=== PATIENT | male | born 1950 | race Caucasian/White ===

== ENCOUNTER 2023-04-03 06:24 | Day surgery (SDC) | payer MEDICARE, OTHER, SELFPAY ==
[2023-04-03 08:05] VITALS: BMI 27.9
[2023-04-03 08:28] VITALS: BMI 27.9
[2023-04-03 08:36] VITALS: BP 162/77
[2023-04-03 09:25] VITALS: BP 155/84
[2023-04-03 09:30] VITALS: BP 152/71
[2023-04-03 09:45] VITALS: BP 166/81
[2023-04-03 09:53] VITALS: BP 183/75
== END 2023-04-03 10:00 | disposition home or self-care (01) ==
LOC: GI 06:24
PROVIDERS: ATTENDING PHYSICIAN Internal Medicine Gastroenterology
DX: I85.00 Esophageal varices without bleeding (principal); K76.6 Portal hypertension; K31.89 Other diseases of stomach and duodenum
CPT/HCPCS: 43235

== ENCOUNTER → 2023-10-08 14:04 | Outpatient (REF) | payer MEDICARE, OTHER, SELFPAY | LOC: HWRAD 14:04 | PROVIDERS: ATTENDING PHYSICIAN Physician Assistant; FAMILY PHYSICIAN Family Medicine; REFERRING PHYSICIAN Internal Medicine Gastroenterology | DX: K74.60 Unspecified cirrhosis of liver (principal); F17.210 Nicotine dependence, cigarettes, uncomplicated | CPT/HCPCS: 71271; 76700 ==

== ENCOUNTER → 2024-06-10 09:46 | Outpatient (REF) | payer MEDICARE, OTHER, SELFPAY | LOC: HWRAD 09:46 | PROVIDERS: ATTENDING PHYSICIAN Nurse Practitioner; FAMILY PHYSICIAN Family Medicine | DX: K74.60 Unspecified cirrhosis of liver (principal) | CPT/HCPCS: 76700 ==

== ENCOUNTER 2024-08-07 11:15 | Outpatient (RCR) | payer MEDICARE, OTHER, SELFPAY ==
[2024-07-31] MEDS: INJECTAFER 265 MG IV (11:44)
[2024-07-31 11:47] VITALS: BP 112/70
[2024-07-31 12:54] VITALS: BP 129/72
[2024-08-07 11:25] VITALS: BP 138/66
[2024-08-07] MEDS: INJECTAFER 265 MG IV (11:36)
[2024-08-07 12:49] VITALS: BP 109/55
== END 2024-08-10 09:01 | disposition home or self-care (01) ==
LOC: OID 11:15
PROVIDERS: ATTENDING PHYSICIAN Family Medicine
DX: D50.9 Iron deficiency anemia, unspecified (principal); F17.200 Nicotine dependence, unspecified, uncomplicated; K74.60 Unspecified cirrhosis of liver; F10.10 Alcohol abuse, uncomplicated
CPT/HCPCS: 96365; J1439

== ENCOUNTER → 2024-10-21 11:23 | Outpatient (REF) | payer MEDICARE, OTHER, SELFPAY | LOC: HWRAD 11:23 | PROVIDERS: ATTENDING PHYSICIAN Internal Medicine Gastroenterology; FAMILY PHYSICIAN Family Medicine | DX: K70.30 Alcoholic cirrhosis of liver without ascites (principal); R07.89 Other chest pain | CPT/HCPCS: 71046; 76700 ==

== ENCOUNTER 2024-12-20 23:39 | Inpatient (IN) | payer MEDICARE, OTHER, SELFPAY ==
[2024-12-20] VITALS (7 sets, daily range): BP systolic 117–140; BP diastolic 67–90; BMI 30.1
[2024-12-20 15:17] LABS: Hematocrit 31.6 % (39.0-52.0); Hemoglobin 10.1 g/dL (13.0-18.0); Mean Corp Hgb Conc. 32.0 g/dL (33.0-37.0); Mean Corpuscular Volume 86.3 fL (80.0-94.0); Nucleated Red Blood Cells % 0 % (-); Platelet Count 77 10^3/uL (130-400); Red Cell Dist. Width 17.2 % (11.5-14.5)
[2024-12-20 15:40] LABS: Ammonia < 9 umol/L (9-30)
[2024-12-20 15:42] LABS: AST (SGOT) 43 U/L (17-59); Albumin 3.2 g/dl (3.5-5.0); Alkaline Phosphatase 86 U/L (38-126); Blood Urea Nitrogen 13 mg/dl (9-20); Calcium 8.3 mg/dl (8.4-10.2); Carbon Dioxide 21 mmol/L (22-30); Chloride 105 mmol/L (98-107); Estimated Creatinine Clearance 88 ml/min; Glucose 223 mg/dl (70-99); Lipase 91 U/L (23-300); Potassium 3.1 mmol/L (3.5-5.1); Sodium 133 mmol/L (135-145); Total Protein 6.9 g/dl (6.3-8.2); eGFR > 60.00
[2024-12-20 15:51] LABS: ALT (SGPT) 23 U/L (0-50)
[2024-12-20 15:52] LABS: Troponin I < 0.012 ng/ml
--- NOTE | 2024-12-20 17:46 | ED.GENMED ---
History of Present Illness
<Leatha Huang, FRET SAW OPERATOR - Last Filed: 12/20/24 23:13>
General
Chief Complaint: Breathing Problem
Source: patient
Exam Limitations: none
Time Seen by Provider: 12/20/24 17:45
Nursing documentation reviewed up to this point in time: agreed with
History of Present Illness
History of Present Illness:
74-year-old male with history of HTN, HLD, cirrhosis of liver, GERD, GI bleed, alcohol abuse and withdrawal, esophageal varices, iron deficiency anemia, pancytopenia, cholecystectomy presents for abdominal swelling worsening over the past week
He has also felt short of breath at times, even at rest. Abdomen 'hurts off and on, not a bad pain...aching then sometimes stabbing.' Mild discomfort presently.
He states he has been lightheaded off and on, dyspneic on exertion and pains across his chest over the past month. He saw his PCP for this and was sent to cardiology for evaluation. [facility], told him he felt palpitations and chest pain and he states he had a normal EKG.
Past History
<Leatha Huang, FRET SAW OPERATOR - Last Filed: 12/20/24 23:13>
Past History
ED Past Medical History: HTN, Hypercholesterolemia and Other
ED Past Surgical History: None
Patient has exhibited threatening behavior?: No
PSI?: No
Review of Systems
<Leatha Huang, FRET SAW OPERATOR - Last Filed: 12/20/24 23:13>
Review of Systems
Allergies reviewed?: Yes
All Other Systems: ROS reviewed and negative except as documented in HPI and ROS
Phy Exam
<Leatha Huang, FRET SAW OPERATOR - Last Filed: 12/20/24 23:13>
Physical Exam
Physical Exam:
GENERAL: No acute distress. A&Ox3.
CONSTITUTIONAL: Afebrile.
EYES: clear, conjunctivae normal
ENMT: moist mucus membranes, Pharynx nl
RESPIRATORY: Regular respirations, nonlabored, lungs clear.
CARDIOVASCULAR: Regular rate and rhythm, no murmurs, no rubs.
GI: Soft, distended, mildly tender generally, normal BS
MUSCULOSKELETAL: Moves with ease. Well perfused.
SKIN: Warm, dry, pink
PSYCH: Normal mood and affect. Well kept, interactive and appropriate
NEUROLOGIC: Awake, alert and oriented. No focal neurological deficits
Scores
<Leatha Huang, FRET SAW OPERATOR - Last Filed: 12/20/24 23:13>
Heart Failure Risk
Heart Failure Risk Score: Not Applicable
Course
<Leatha Huang, FRET SAW OPERATOR - Last Filed: 12/20/24 23:13>
Orders/Labs/Results
Orders:
Orders
12/20/24 15:00
Electrocardiogram (*1) Urgent
Reason for Study: Shortness of Breath
12/20/24 15:01
EKG- Treatment ONCE
12/20/24 15:06
Ammonia Urgent
Complete Blood Count/With Diff Urgent
Comprehensive Metabolic Panel Urgent
Lipase Urgent
Troponin I Urgent
12/20/24 16:45
CR Chest - 2 Views Urgent
Comment:
Reason For Exam: shortness of breath
12/20/24 18:07
US Abdomen Limited Urgent
Comment:
Reason For Exam: ascites assessment
12/20/24 19:02
Potassium Chloride [KCl] 40 meq PO NOW STA
12/20/24 20:12
CT Abd/Pel (IV only)-DH only Urgent
Comment:
Reason For Exam: Abdominal pain, distention
12/20/24 22:59
Add On- LAB Stat
Tests Added?: pro-BNP
Abnormal Lab Results
12/20/24
15:06
RBC 3.66 L 10^6/uL
(4.70-6.10)
Hgb 10.1 L g/dL
(13.0-18.0)
Hct 31.6 L %
(39.0-52.0)
MCHC 32.0 L g/dL
(33.0-37.0)
RDW 17.2 H %
(11.5-14.5)
Plt Count 77 L 10^3/uL
(130-400)
MPV 10.7 H fL
(7.4-10.4)
Absolute Lymphs (auto) 0.9 L 10^3/uL
(1.2-3.4)
Absolute Monos (auto) 0.8 H 10^3/uL
(0.1-0.6)
Lymphocytes % 15.9 L %
(20.5-51.1)
Monocytes % 14.0 H %
(1.7-9.3)
Sodium 133 L mmol/L
(135-145)
Potassium 3.1 L mmol/L
(3.5-5.1)
Carbon Dioxide 21 L mmol/L
(22-30)
Glucose 223 H mg/dl
(70-99)
Calcium 8.3 L mg/dl
(8.4-10.2)
Total Bilirubin 4.2 H mg/dl
(0.2-1.3)
Ammonia < 9 L umol/L
(9-30)
Albumin 3.2 L g/dl
(3.5-5.0)
12/20/24 15:06
12/20/24 15:06
Vital Signs
Initial and Last Documented VS:
Initial Vital Signs
Temp Pulse Resp BP Pulse Ox
97.6 F 100 28 131/80 100
12/20/24 15:06 12/20/24 15:06 12/20/24 15:06 12/20/24 15:06 12/20/24 15:06
Last Documented Vital Signs
Temp Pulse Resp BP Pulse Ox
97.6 F 93 21 140/90 96
12/20/24 15:06 12/20/24 22:13 12/20/24 22:13 12/20/24 22:13 12/20/24 19:45
<Crystal Kathy, DO - Last Filed: 12/20/24 22:55>
Orders/Labs/Results
Orders:
Orders
12/20/24 15:00
Electrocardiogram (*1) Urgent
Reason for Study: Shortness of Breath
12/20/24 15:01
EKG- Treatment ONCE
12/20/24 15:06
Ammonia Urgent
Complete Blood Count/With Diff Urgent
Comprehensive Metabolic Panel Urgent
Lipase Urgent
Troponin I Urgent
12/20/24 16:45
CR Chest - 2 Views Urgent
Comment:
Reason For Exam: shortness of breath
12/20/24 18:07
US Abdomen Limited Urgent
Comment:
Reason For Exam: ascites assessment
12/20/24 19:02
Potassium Chloride [KCl] 40 meq PO NOW STA
12/20/24 20:12
CT Abd/Pel (IV only)-DH only Urgent
Comment:
Reason For Exam: Abdominal pain, distention
12/20/24 22:59
Add On- LAB Stat
Tests Added?: pro-BNP
Abnormal Lab Results
12/20/24
15:06
RBC 3.66 L 10^6/uL
(4.70-6.10)
Hgb 10.1 L g/dL
(13.0-18.0)
Hct 31.6 L %
(39.0-52.0)
MCHC 32.0 L g/dL
(33.0-37.0)
RDW 17.2 H %
(11.5-14.5)
Plt Count 77 L 10^3/uL
(130-400)
MPV 10.7 H fL
(7.4-10.4)
Absolute Lymphs (auto) 0.9 L 10^3/uL
(1.2-3.4)
Absolute Monos (auto) 0.8 H 10^3/uL
(0.1-0.6)
Lymphocytes % 15.9 L %
(20.5-51.1)
Monocytes % 14.0 H %
(1.7-9.3)
Sodium 133 L mmol/L
(135-145)
Potassium 3.1 L mmol/L
(3.5-5.1)
Carbon Dioxide 21 L mmol/L
(22-30)
Glucose 223 H mg/dl
(70-99)
Calcium 8.3 L mg/dl
(8.4-10.2)
Total Bilirubin 4.2 H mg/dl
(0.2-1.3)
Ammonia < 9 L umol/L
(9-30)
Albumin 3.2 L g/dl
(3.5-5.0)
12/20/24 15:06
12/20/24 15:06
Vital Signs
Initial and Last Documented VS:
Initial Vital Signs
Temp Pulse Resp BP Pulse Ox
97.6 F 100 28 131/80 100
12/20/24 15:06 12/20/24 15:06 12/20/24 15:06 12/20/24 15:06 12/20/24 15:06
Last Documented Vital Signs
Temp Pulse Resp BP Pulse Ox
97.6 F 93 21 140/90 96
12/20/24 15:06 12/20/24 22:13 12/20/24 22:13 12/20/24 22:13 12/20/24 19:45
<Leatha MelanieEm Huang FRET SAW OPERATOR - Last Filed: 12/20/24 23:13>
MDM/Problems Addressed
Differential Diagnosis Includes:
ascites,
MDM/Problems Addressed:
74-year-old male with history of HTN, HLD, cirrhosis of liver, GERD, GI bleed, alcohol abuse and withdrawal, esophageal varices, iron deficiency anemia, pancytopenia, cholecystectomy presents for abdominal swelling worsening over the past week
He has also felt short of breath at times, even at rest. Abdomen 'hurts off and on, not a bad pain...aching then sometimes stabbing.' Mild discomfort presently.
Patient states he drinks 4 or 5 beers every day, smokes half a pack of cigarettes a day
He states he has been lightheaded off and on, dyspneic on exertion and pains across his chest over the past month. He saw his PCP for this and was sent to cardiology for evaluation. He went to a various exceptionalities teacher Dr. Scales near [facility] 2 days
ago, told him he felt palpitations and chest pain and he states he had a normal EKG.
7:40 PM:
Abdominal ultrasound radiology report read: FINDINGS and IMPRESSION:
Ultrasound evaluation of the 4 quadrants of the abdomen reveals overall small to moderate volume ascites, most prominent in the right lower quadrant.
Chest x-ray radiology report read: IMPRESSION:
Diminished degree of inspiration. Minor atelectasis. Otherwise, no acute cardiopulmonary process appreciated.
Patient moaning and groaning and when I asked what was wrong he said he has not had this much trouble breathing before. His pulse ox is 99% on room air and I reassured him.
Chest x-ray pending
After telling him that there was not enough fluid to drain in his belly, he now asks why am I having all this abdominal pain? Will proceed to CT abdomen pelvis with IV contrast.
10:10 PM: CT abdomen pelvis with IV only contrast radiology report read: IMPRESSION:Cirrhosis. Splenomegaly. Paraesophageal varices.
Mild to moderate ascites. Mild mesenteric edema.
No bowel obstruction. No obstructive uropathy.
10:[address] Chavez consulted and in.
Agrees with admission, new moderate ascites, [place], volume overload
Hospitalist notified of admission
<Leatha Huang FRET SAW OPERATOR - Last Filed: 12/20/24 23:13>
*Pulse Oximetry
SaO2: 97
Oxygen Mode of Delivery: Room air
Patient hypoxic: no
*Critical Care Note
Total Time (30-74mins, 75-104mins- exclusive of procedures): Not Applicable
ED Attending Note
<Leatha Huang, FRET SAW OPERATOR - Last Filed: 12/20/24 23:13>
-
Portions of this chart may have been created with voice recognition software.� Occasional wrong word or��sound alike� substitutions may have occurred due to the inherent limitations of voice recognition software.
<Crystal Chavez DO - Last Filed: 12/20/24 22:55>
ED Attending Note
Patient seen and examined by attending physician: Yes
I performed the substantive portion of visit, reviewed & personally made and approve the management plan that is documented in note by myself or ANDIE.: Yes
I performed a history and physical exam of patient and discussed management with resident, I reviewed resident's note and agree with documented findings and plan of care.: Yes
ED Attending Note:
74-year-old male with history of alcoholic cirrhosis, esophageal varices, iron deficiency anemia, hypertension, hyperlipidemia presenting to the emergency department for multiple complaints. Patient reports that he has been feeling short of breath
for over a week. Notes dyspnea on exertion and dyspnea with any type of minimal exertion. Notes that he did see his various exceptionalities teacher 2 days ago, reports that he had a normal EKG at that time. More recently he started to develop abdominal swelling
distention with generalized pain. Some nausea with episode of vomiting. Denies any fever. Denies any history of ascites.
Vital signs on arrival are normal. On exam, patient is in no acute respiratory distress benign cardiac and pulmonary exam. On abdominal exam, moderate distention with no focal tenderness. Patient seen and evaluated by nurse practitioner prior to
my assessment. We reviewed, nonischemic. Chest x-ray obtained, no significant signs of volume overload. CT of the abdomen pelvis obtained, which shows moderate ascites. Suspected etiology of patient's pain, discomfort, dyspnea on exertion.
Again patient denying any known history of ascites, never had paracentesis in the past. Without present concern for SBP. No leukocytosis, afebrile, no localized tenderness. However, given new onset and patient's pain, feel patient warrants
admission for therapy paracentesis and possible cardiac versus GI consultation.
Discharge Plan
Departure
Patient Disposition: Admit
Date of Disposition: 12/20/24
Time of Disposition: 22:39
Admit to: Med/Surg
Presentation/result/management discussed w/ accepting MD/DO: Hospitalist
Condition: Fair
Discharge Problem:
Abdominal ascites, Dyspnea on exertion, Volume overload
Prescriptions:
No Action
Blink Tears 0.25 % Drops
1 drp ophthalmic (eye) DAILY MDD Instill in both eyes PRN (Reason: dry eyes)
carvedilol 6.25 mg Tablet
6.25 mg PO BID Qty: 60 0RF
thiamine HCl (vitamin B1) 100 mg Tablet
100 mg PO DAILY Qty: 30 0RF
omeprazole 40 MG capsule,delayed release(DR/EC)
40 mg PO DAILY Qty: 30 0RF
Referrals:
Christian Michelle MD [Family Provider, Family Practice]
Interventions
Interventions:
*Risk Screen - Suicide Last Done: 12/20/24 15:11
*General Assessment Last Done: 12/20/24 15:11
*Neglect/Abuse Screening Last Done: 12/20/24 15:11
*ED COVID-19 Vaccine History Last Done: 12/20/24 15:10
*ED Influenza Vaccine History Last Done: 12/20/24 15:10
ED- Cardiac Assessment Last Done: 12/20/24 17:00
ED- Pulmonary Assessment Last Done: 12/20/24 17:00
Discharge Date and Time
Print Language: MACEDONIAN
[2024-12-20] MEDS: KCL 40 MEQ PO (19:06)
--- NOTE | 2024-12-20 22:50 | W.PN.UPDATE ---
Update Note
Progress Note Update
Patient seen in conjunction with nurse practitioner. I agree with the findings on history and physical. I concur with assessment and plan unless stated otherwise.
Briefly, this is a 74-year-old with past medical history significant for alcoholic cirrhosis complicated by esophageal varices status post banding few years ago, GERD, history of iron deficiency anemia pancytopenia likely secondary to portal
hypertension will rule out presents to the emergency department with increasing abdominal girth and some shortness of breath. Patient still a daily drinker 4-5 cans of beer daily. Last drink was yesterday. Denies N/V. Denies any melena. Denies
hematochezia.
In the emergency department the patient was afebrile, blood pressure of 140/90 with a pulse rate of 93 and was satting 96% on room air. His chest x-ray shows no acute pulmonary edema or pleural effusions or infiltrates. ECG with rate of 100 and
few PACs.
Labs notable for white count 5.4 hemoglobin 10.3 on repeat count of 77. Electrolytes with a sodium of 133 with potassium of 3.1 and otherwise unremarkable. BUN and creatinine were normal. Leukos was 223. Total bilirubin was 4.2 with LFTs being
in the normal range.
Imaging again with a CT of the abdomen pelvis showing moderate ascites, no focal collection or abscess. No adenopathy. Cirrhosis noted with splenomegaly and paraesophageal varices. Ultrasound of the 4 quadrants of the abdomen revealed overall
small to moderate volume ascites. Patient is status post cholecystectomy.
Assessment and plan
73-year-old with past medical history significant for alcohol dependence and cirrhosis complicated by esophageal varices status post banding who presents with abdominal Girth increases and shortness of breath. Weight gain. Found to have new onset
ascites, moderate. Abdomen nontender and no tenseness. Unlikely SBP. Hemoglobin is stable no evidence of acute bleed at this time. He does have paraesophageal varices on the CT scan. No prior history of CHF. Renal function is normal. No
peripheral edema. No pulm edema and no jvd elevation.
Volume overload -volume overload is likely secondary to new onset ascites in the setting of progressive cirrhosis. Ongoing alcohol use. No obvious evidence of acute decompensation with normal LFTs although the bilirubin is slightly for elevated.
No TTP. Unlikely SBP but cannot rule out entirely. No history of CHF.
Cirrhosis with new onset ascites - Likely portal htn, eval chf as patient does have pacs & mild chest discomfort
- Will admit to telemetry for now
- Supplement potassium, supplement magnesium
- Start diuretics with Lasix 20 mg po daily
- Start spironolactone 25 mg p.o. daily
- Diagnostic paracentesis
- GI consulted
- Continue carvedilol for varices BP control
- continue ppi
- Currently no prior history of hepatic encephalopathy, ammonia level undetectable, no indication for acute prophylaxis at this time, and GI will be following
- Will evaluate other sources of for volume overload, check BNP, echo in a.m.
ETOH use/dependence- last drink yesterday. No signs of acute withdrawal
- MSAS protocol for now
- continue MVI
Hyponatremia - mild likely due to cirrhosis, excess free water intake from etoh
- replete K
- hyervolemic, start gentle diuresis as above
Atypical CP - ECG with pacs, trop negative. No prior hx of CAD. Pain reproducible with palpation. H/o gastritis/gerd
- telemetry for nw
- echo
- analgesics
- continue ppi bid
Anemia - stable, no evidence of GI bleed
Thrombocytopenia - Stable. likely secondary to portal hypertension, cirrhosis
DVT PPX- SCDs for now
Code status - Full code
--- NOTE | 2024-12-20 22:53 | HPS.HSE ---
Family Physician
-
Family Physician: Christian Michelle
Chief Complaint
-
Abdominal pain, swelling
History of Present Illness
74-year-old male complaining of abdominal swelling over the past 5 days along with shortness of breath at rest. He also reports being lightheaded on and off with dyspnea on exertion and chest pain over the past month. He was seen by PCP and sent
to cardiology for evaluation he was reportedly seen at a psychiatric social worker supervisor near [facility] 2 days ago had normal EKG despite complaining of palpitations. He reports still drinking 4-5 beers daily however cut down over the past 5 days 1 beer a day
last drink was yesterday afternoon. He denies history of ascites. He complains of shortness of breath, abdominal pain, nausea, vomiting bile, reflux. He denies fever, chills, cough, diarrhea, black stools, hematemesis he states he has had normal
bowel movement
He has past medical history HTN, HLD iron deficiency anemia, chronic pancytopenia, chronic thrombocytopenia fatty liver, alcoholic cirrhosis of liver, alcohol abuse/withdrawal, GERD,
EGD 04/03/2023 grade 1 esophageal varices, history of esophageal banding 01/24/2023, portal hypertensive gastropathy, hemorrhoids, diverticulosis, nonbleeding angioectasias:
Medical History
Past Medical History
Past Medical History: Reports Other
Additional Past Medical History:
HTN
HLD
iron deficiency anemia
chronic pancytopenia
chronic Thrombocytopenia
fatty liver
Alcoholic cirrhosis of liver
Alcohol abuse/withdrawal
GERD
EGD 04/03/2023 grade 1 esophageal varices, history of esophageal banding 01/24/2023
portal hypertensive gastropathy
nonbleeding angioectasias in colon
hemorrhoids
diverticulosis
Active smoker
Past Surgical History: Reports Other
Additional Past Surgical History:
Cholecystectomy
Social History
Tobacco: Smoker (Half a pack a day times)
Alcohol: Daily (4-5 beers)
Drug: None
Personal: Single
Living: Alone
Employment: Retired
Family History
Family History: Other (Mother CVA Father unknown)
Allergies / Home Medications
Allergies reflects when Allergies were last updated in [employer].
Home Medications with original date entered in [employer]
Allergy/Medication List:
Allergies
Allergy/AdvReac Type Severity Reaction Status Date / Time
Penicillins Allergy hot Verified 12/20/24 15:02
flashes;sweats;shakes
shrimp Allergy Tongue Verified 12/20/24 15:02
Swelling
Home Medications
carvedilol 6.25 mg tablet 6.25 mg PO BID #60 tabs 01/25/23
omeprazole 40 mg capsule,delayed release 40 mg PO DAILY Gastrointestinal issue #30 caps 01/25/23
M.V.I. 1 tab PO DAILY 12/20/24
iron 65 mg PO DAILY 12/20/24
Review of Systems
-
History Source: Patient
A 12 point ROS was completed and negative except as noted: Yes
Constitutional: Reports Fatigue; Denies Fever or Chills
EENT: Denies Sore Throat or Runny Nose
Respiratory: Reports Trouble Breathing; Denies Cough
Cardiac: Denies Chest Pain, Diaphoresis, Palpitations or Syncope
Abdomen/GI: Reports Abdominal Pain (due to distention ascites), Nausea and Vomiting (occ bile ); Denies Diarrhea, Constipated, Bloody Stools or Black Stools
: Denies Dysuria, Frequency, Flank Pain, Incontinence, Difficulty Voiding or Urgency
Musculoskeletal: Denies Joint Pain or Edema
Skin: Denies Itching or Rash
Neurological: Denies Dizzy, Headache or Weakness
Hematologic/Lymphatic: Reports No Symptoms
Psych: Reports Calm
Physical Exam
Vital Signs
Vital Signs
Temp Pulse Resp BP Pulse Ox
97.6 F 93 21 140/90 96
12/20/24 15:06 12/20/24 22:13 12/20/24 22:13 12/20/24 22:13 12/20/24 19:45
Physical Exam
General: Conversant and Pain; No Fever or Chills
HEENT: NormoCephalic, Anicteric, Moist mucous membranes, PERRLA, [place] Conjunctivae and No Ptosis
Respiratory: Clear; No Wheezes, Rales or Rhonchi
Cardiac: S1/S2, Regular Rhythm (occ pac's ) and Murmur (2/6 systolic ); No Rub, Gallop or Peripheral Edema
Breast: Deferred by me
GI: Non Tender (RLQ), Distended and Other (soft ventral hernia nontender)
Rectal: Deferred by Provider
Genito-urinary: Deferred by me
Musculoskeletal: No Clubbing, No Cyanosis and No Edema
Skin: Warm and Dry; No Rash or Jaundice
Neuro: AO x 3, No Motor Deficits, Nonfocal/grossly intact, Cranial Nerves Intact and No Sensory Deficits; No Slurred Speech, Facial Droop, Tremors or Sedated
Psych: Calm
Laboratory Results
-
12/20/24 15:06
12/20/24 15:06
Laboratory Results
Total Bilirubin 4.2 mg/dl (0.2-1.3) H 12/20/24 15:06
AST 43 U/L (17-59) 12/20/24 15:06
ALT 23 U/L (0-50) 12/20/24 15:06
Alkaline Phosphatase 86 U/L (38-126) 12/20/24 15:06
Troponin I < 0.012 ng/ml 12/20/24 15:06
Lipase 91 U/L (23-300) 12/20/24 15:06
Data Reviewed
-
Diagnostic Radiology: Report Reviewed by me
Ultrasound: Report Reviewed by me
Lab Data: Labs Reviewed by me
Impression/Plan
-
Impression/plan:
Admit to Tele
#Abdominal pain secondary to mild/Moderate Ascites with mild mesenteric edema
History of Alcoholic liver Cirrhosis
Ammonia normal
- Consult IR for paracentesis with cytology
-Consult GI
Will start Lasix 20 mg, spironolactone 25 mg daily
-Monitor I&O, daily weights
- Check BNP
CT abdomen pelvis: Cirrhosis, splenomegaly, paraesophageal varices, mild to moderate ascites with mild mesenteric edema, no bowel obstruction no obstructive uropathy
Abdominal ultrasound small to moderate volume ascites most prominent in the right lower quadrant
CXR: Diminished degree of inspiration minor atelectasis otherwise normal
#Alcohol abuse
Alcoholic liver cirrhosis
Patient still drinking 4-5 beers daily last beer yesterday, prior 2022 was drinking hard liquor and multiple beers daily
- Cessation was advised
-MSAS screening protocol
- IV thiamine IV folate
#Cardiac murmur
-Check 2D echo
#Acute hypokalemia due to volume overload
K3.1
- 40 KCl given in ER, will give additional 20 KCl now
Follow BMP in a.m.
#Hyperglycemia
Blood sugar 223 will check HgbA1c
#Esophageal varices/GERD/portal hypertensive gastropathy
#History of nonbleeding angioectasias in colon
EGD 04/03/2023 grade 1 esophageal varices, history of esophageal banding 01/24/2023
Hemoglobin stable 10.1
-Continue PPI
#Chronic anemia�normocytic
History iron deficiency anemia
Hgb 10.1
#Chronic thrombocytopenia/Splenomegaly
Plt 77 prior baseline 40�70 ([id number])
HTN
�benign
Continue carvedilol 6.25 mg twice daily
DVT prophylaxis
Splenomegaly
Full code
[2024-12-21] VITALS (10 sets, daily range): BP systolic 78–151; BP diastolic 52–109; PULSE 71; BMI 29.2
--- NOTE | 2024-12-21 01:59 | PTCARENOTE ---
Pt arrived to unit (0125 12/21/24) cooperatively, ambulated self from stretcher to bed. Pt was AOOx3, oriented to unit, bed locked, bed in lowest position, call kidd in reach. Sinus arrythmia per tele on admission.
[2024-12-21] MEDS: THIAMINE INJECTION 200 MG IV ×3 (02:44→15:43)
[2024-12-21] MEDS: KCL 20 MEQ PO (04:32)
[2024-12-21 06:29] LABS: Urine Character Clear (Clear)
[2024-12-21 06:41] LABS: Hematocrit 27.7 % (39.0-52.0); Hemoglobin 9.0 g/dL (13.0-18.0); Mean Corp Hgb Conc. 32.5 g/dL (33.0-37.0); Mean Corpuscular Volume 85.8 fL (80.0-94.0); Nucleated Red Blood Cells % 0 % (-); Platelet Count 58 10^3/uL (130-400); Red Cell Dist. Width 17.2 % (11.5-14.5)
[2024-12-21 06:43] LABS: GGTP 113 U/L (15-73)
[2024-12-21 06:47] LABS: INR 1.42; PT 17.6 Sec (11.4-14.6)
[2024-12-21 06:53] LABS: ALT (SGPT) 15 U/L (0-50); AST (SGOT) 36 U/L (17-59); Albumin 2.9 g/dl (3.5-5.0); Alkaline Phosphatase 89 U/L (38-126); Blood Urea Nitrogen 13 mg/dl (9-20); Calcium 8.2 mg/dl (8.4-10.2); Carbon Dioxide 25 mmol/L (22-30); Chloride 108 mmol/L (98-107); Estimated Creatinine Clearance 88 ml/min; Glucose 112 mg/dl (70-99); HDL Cholesterol 29 mg/dl; LDL Cholesterol, Calculated 47 mg/dl; Magnesium 1.4 mg/dl (1.6-2.3); Potassium 4.0 mmol/L (3.5-5.1); Sodium 133 mmol/L (135-145); Total Protein 6.4 g/dl (6.3-8.2); Very Low Density Lipoprotein 16 mg/dl (0-30); eGFR > 60.00
[2024-12-21 07:02] LABS: Urine Red Blood Cell 26-30 /HPF (0-2)
[2024-12-21] MEDS: FOLVITE 1 MG PO (08:39)
[2024-12-21] MEDS: LASIX 20 MG PO (08:39)
[2024-12-21] MEDS: COREG 6.25 MG PO (08:39)
[2024-12-21] MEDS: PROTONIX 40 MG PO (08:39)
[2024-12-21] MEDS: ALDACTONE 25 MG PO (08:39)
[2024-12-21 08:57] LABS: Glycohemoglobin (HgbA1c) 4.1 % (4.0-5.9)
--- NOTE | 2024-12-21 09:47 | CON.GI ---
Addendum entered and electronically signed by Lloyd Felipe MD 12/21/24 12:24:
I saw and examined the patient.
The EMS INSTRUCTOR or PA's note was reviewed and I agree with the note.
Comment: 74yo male presents with increased abdominal distention with pain, SOB, fatigue. He has hx EtOH cirrhosis, drinks 4-5 beers/day, esophageal varices s/p banding in 2022 and f/u EGD in 2023 showing grade I varices. No prior paracentesis. US
shows moderate ascites. CT shows cirrhosis, splenomegaly, esoph varices, mild/mod ascites, mild mesenteric edema
REC:
New onset ascites
s/p paracentesis- WBC 300 with 25% PMN (negative SBP). Fluid alb <1 and serum albumin 2.9 calculating to SAAG >1.8 c/w portal HTN
Started on low dose diuretics
Feeling better and ok for d/c from GI standpoint
Check BMP in 2 weeks
F/U with Dr Toribio in office for further management of EtOH cirrhosis
Reinforced need for EtOH abstinence
Addendum entered and electronically signed by RADHA Neal 12/21/24 12:10:
Patient has hospital follow-up appoint with Dr. Toribio on 01/18/2025 at 11:30 AM
Original Note:
Consultation
-
Date/Time Consultation Requested: 12/20/24 3283
Date/Time Consultation Performed: 12/21/24 6360
Requesting Provider: RADHA Evangelista
Performing Provider: Dr. Felipe/RADHA Valdez
Reason for Consultation: ascites, ETOH abuse
Medical History
Chief Complaint / HPI
Chief Complaint: abnormal labs
History of Present Illness:
74 yo with hx of iron deficiency anemia (on IV iron), GERD, fatty liver, alcoholic cirrhosis decompensated with esophageal varices, on Coreg 6.25(last endoscopy 04/03/23 Dr. Toribio that showed grade 1 esophageal varices. Portal hypertensive
gastropathy. Normal duodenum) maintained on carvedilol 6.25 mg twice daily, colonic AVMs, nonobstructive CAD, hypertension, continues to drink. Patient is unable to have MRI secondary to 'metal in ears' who presents to the ER with increasing
abdominal swelling and shortness of breath. Asked to evaluate for ascites. The patient has recently seen cardiology for shortness of breath and chest discomfort. The patient was seen by Dr. Toribio for his routine follow up in September and was
asked to f/u with Cardiology, had US that showed small amount of ascites and CXR that was clear. Patient states that he started having significant abdominal distention. No lower extremity edema. He denies any fevers, chills, nausea, vomiting,
melena, hematochezia, dysphagia or dyne aphasia. No early satiety or unintended weight loss. He does not follow 2 g sodium diet. We discussed at length. He was still drinking 5-6 beers daily. He did stop about 1 week ago.
�� � � � � � � � � �
Past Medical History
Past Medical History: GERD, HTN, Hypercholesterolemia and Other (ETOH abuse, Iron deficiency anemia, fatty liver, choledocholithiasis with prior ERCP, GERD, esophageal varices, portal hypertensive gastropathy, colonic AVMs, CAD, hypertension)
Past Surgical History: Cholecystectomy and Other (left ear surgery)
Social History
Tobacco: Smoker
Alcohol: Daily
Drug: None
Living: Alone
Family History
Family History: Other (sister with metastatic CA)
Allergies / Home Medications
Allergy/AdvReac Type Severity Reaction Status Date / Time
Penicillins Allergy hot Verified 12/20/24 15:02
flashes;sweats;shakes
shrimp Allergy Tongue Verified 12/20/24 15:02
Swelling
�Medication �Instructions �Recorded
carvedilol 6.25 mg tablet 6.25 mg PO BID #60 tabs 01/25/23
omeprazole 40 mg capsule,delayed 40 mg PO DAILY Gastrointestinal 01/25/23
release issue #30 caps
M.V.I. 1 tab PO DAILY Supplement 12/20/24
iron 65 mg PO DAILY Supplement 12/20/24
Review of Systems
-
All other systems: A 12 pt ROS was Negative except as stated above in HPI
Vital Signs
Temp Pulse Resp BP Pulse Ox
98 F 78 15 111/73 98
12/21/24 08:50 12/21/24 09:42 12/21/24 09:42 12/21/24 09:42 12/21/24 09:40
Physical Exam
Exam
General: No Apparent Distress
HEENT: Anicteric
Respiratory: Clear
Cardiac: Regular Rhythm
GI: Soft, Non Tender, Non Distended and Normal Bowel Sounds
Musculoskeletal: No Edema
Neuro: AO x 3
Psych: Calm
Results
WBC 3.9 10^3/uL (4.8-10.8) L 12/21/24 06:08
Hgb 9.0 g/dL (13.0-18.0) L 12/21/24 06:08
Hct 27.7 % (39.0-52.0) L 12/21/24 06:08
MCV 85.8 fL (80.0-94.0) 12/21/24 06:08
Plt Count 58 10^3/uL (130-400) L D 12/21/24 06:08
Absolute Neuts (auto) 2.2 10^3/uL (1.4-6.5) 12/21/24 06:08
PT 17.6 Sec (11.4-14.6) H 12/21/24 06:07
INR 1.42 12/21/24 06:07
Sodium 133 mmol/L (135-145) L 12/21/24 06:08
Potassium 4.0 mmol/L (3.5-5.1) D 12/21/24 06:08
Chloride 108 mmol/L (98-107) H 12/21/24 06:08
Carbon Dioxide 25 mmol/L (22-30) 12/21/24 06:08
BUN 13 mg/dl (9-20) 12/21/24 06:08
Creatinine 0.8 mg/dL (0.7-1.3) 12/21/24 06:08
Calcium 8.2 mg/dl (8.4-10.2) L 12/21/24 06:08
Total Bilirubin 3.3 mg/dl (0.2-1.3) H 12/21/24 06:08
AST 36 U/L (17-59) 12/21/24 06:08
ALT 15 U/L (0-50) 12/21/24 06:08
Alkaline Phosphatase 89 U/L (38-126) 12/21/24 06:08
Lipase 91 U/L (23-300) 12/20/24 15:06
Diagnostic Image Results:
Paracentesis: Report pending (per patient 4.1 L removed)
Ultrasound abdomen 12/20/2024:Ultrasound evaluation of the 4 quadrants of the abdomen reveals overall small to moderate volume ascites, most prominent in the right lower quadrant.
CT abdomen and pelvis with IV contrast only 12/20/2024:Cirrhosis. Splenomegaly. Paraesophageal varices.
Mild to moderate ascites. Mild mesenteric edema.No bowel obstruction. No obstructive uropathy.
Chest x-ray 12/20/2024:Diminished degree of inspiration. Minor atelectasis. Otherwise, no acute cardiopulmonary process appreciated.
Prior GI Procedures:
---04/03/2023 EGD (Catarino) grade 1 esophageal varices. Portal hypertensive gastropathy. Normal examined duodenum.
---01/24/23 Colonoscopy, Dr. Yanes: internal hemorrhoids, diverticulosis, a few non-bleeding angiodysplastic lesions (APC not performed). Repeat 3-5 years
---01/24/23 EGD, Dr. Yanes: Grade III esophageal varices, banded, with complete eradication. Portal hypertensive gastropathy, normal duodenum. Repeat in 4 weeks.
---07/2021 FibroScan: F3 fibrosis
---07/2020 EGD, Dr. Hidalgo: normal esophagus, duodenum. Gastritis. Bx mild chronic inactive gastritis, neg H pylori.
Labs 10/17/24:
AFP 2.8, WBC 3.8, hemoglobin 10.2, hematocrit 33.5, platelets 69, Iron 38, TIBC 361, percent iron saturation 11, ferritin 16, sodium 141, potassium 4.2, BUN 11, creatinine 0.68, total bilirubin 1.3, direct bilirubin 0.4, AST 34, ALT 15, alk phos
101, albumin 3.3
10/21/2024 ultrasound abdomen: Cirrhosis. No hepatic mass. Small amount of intraperitoneal ascites new. Splenomegaly.
10/21/2024 chest x-ray: Clear lungs. No significant change.
Assessment / Plan
-
74 yo with hx of iron deficiency anemia (on IV iron), GERD, fatty liver, alcoholic cirrhosis decompensated with esophageal varices, on Coreg 6.25(last endoscopy 04/03/23 that showed grade 1 esophageal varices. Portal hypertensive gastropathy. Normal
duodenum) maintained on carvedilol 6.25 mg twice daily, colonic AVMs, nonobstructive CAD, hypertension, recently quit smoking however continues to drink. Patient is unable to have MRI secondary to 'metal in ears' who presents to the ER with
increasing abdominal swelling and shortness of breath. Asked to evaluate for ascites. Patient with moderate amount of ascites seen on imaging. Symptomatic. No lower extremity edema. BNP negative. Denies any fevers, chills, nausea, vomiting,
melena, hematochezia, dysphagia or dyne aphasia. No early satiety or unintended weight loss. The patient does not weigh himself. We discussed this at length. Last alcohol was approximately 5 days ago. Was drinking 5-6 beers a day prior. WBC
3.9, hemoglobin 9.0, hematocrit 27.7, platelets 58, INR 1.42, sodium 133, potassium 4.0, BUN 13, creatinine 0.8, total bilirubin 3.3, AST 36, ALT 15, alk phos 89. Patient went for paracentesis this morning. Report not available however patient
states he had 4.1 L removed. He is feeling markedly improved. Fluid analysis SAG greater than 1.8 fluid negative for SBP. Culture and Gram stain pending. Patient was started on Lasix 20 mg daily and Aldactone 25 mg daily. Discussed with patient
role of diuretics. Also discussed with patient 2 g sodium diet and educated him on such. Discussed about daily weights. Need for routine labs, follow-up and alcohol abstinence
Impression:
Decompensated cirrhosis, (varices and ascites)
Ascites, moderate
Esophageal varices, last EGD 04/03/2023 (grade 1)
Iron deficiency anemia, on outpatient IV iron infusion
--> Likely secondary to portal gastropathy and colonic and SB AVMs in setting of thrombocytopenia
Thrombocytopenia
ETOH abuse
Plan:
-Patient is s/p paracentesis, await fluid culture and gram stain
-SAAG is > 1.8, Fluid neg SBP.
-Started on Lasix 20 mg po and Aldactone 25 mg daily
-ETOH cessation advised
-Continue Coreg 6.25 BID
-Daily weights, call if greater than 3 lbs in 1 day or 5 lbs in 1 week
-2 gm Na diet
-Continue Omeprazole 40 mg daily
-Continue iron
-Would get outpatient labs in 2 weeks, per IM/f/u with PCP
-Will obtain hospital follow up with Dr. Toribio for patient
-Okay per GI for discharge. Discussed with Dr. Shaikh
-
-
Thank you for consultation and allowing me to participate in the patient's care. Please call the corporate bond trader GI physician during the after hours with any questions or concerns.
--- NOTE | 2024-12-21 11:29 | CM ---
trauma manager reviewed patient's chart and met with patient and patient lives alone is independent with adl's and ambulation, no dme, patient drives, home when stable no needs. trauma manager received a consult for substance abuse counseling, case
project construction assistant manager discussed with patient possible referral to [facility] however patient declined referral to [facility].
PCP: Dr. Michelle
Pharmacy: [facility] in [place].
[2024-12-21 11:49] LABS: Body Fluid Second Tech HB
--- NOTE | 2024-12-21 12:07 | W.PN.HOSP.TC ---
Today's Communication/Plan
-
If ok from GI will plan on DC today
Assessment / Plan
Assessment / Plan
#Abdominal distention and pain secondary to mild/Moderate Ascites with mild mesenteric edema
History of Alcoholic liver Cirrhosis
Ammonia normal
Status post paracentesis which shows total white count of 300. Culture pending. SAAG 1.8 suggestive of portal hypertension.
cw Lasix 20 mg, spironolactone [address] abdomen pelvis: Cirrhosis, splenomegaly, paraesophageal varices, mild to moderate ascites with mild mesenteric edema, no bowel obstruction no obstructive uropathy
Abdominal ultrasound small to moderate volume ascites most prominent in the right lower quadrant
CXR: Diminished degree of inspiration minor atelectasis otherwise normal
#Alcohol abuse
Alcoholic liver cirrhosis
Patient still drinking 4-5 beers daily last beer yesterday, prior 2022 was drinking hard liquor and multiple beers daily
- Cessation was advised
-MSAS screening protocol
-No signs of alcohol withdrawal.
Patient states he never had any alcohol withdrawal syndrome. He has done days without alcohol without any symptoms.
Patient declines any open support for alcohol rehab program. He says he has done quitting alcohol by himself And He Will Try to Do It Again.
#Cardiac murmur
-2D echo valvular heart disease. Ascending aorta mildly dilated at 4.0 cm which is increased from 3.6 in the last 3 years. Advised to follow-up with cardiology as an outpatient to keep an eye on it.
#Acute hypokalemia due to volume overload
K3.1
- 40 KCl given in ER, will give additional 20 KCl now
.
#Hyponatremia-mild follow for now.
#Hypomagnesemia-replete IV
#Hyperglycemia
Blood sugar 223
Hemoglobin A1c 4.1
#Esophageal varices/GERD/portal hypertensive gastropathy
#History of nonbleeding angioectasias in colon
EGD 04/03/2023 grade 1 esophageal varices, history of esophageal banding 01/24/2023
Hemoglobin stable 10.1
-Continue PPI
- Continue with Coreg
#Chronic anemia�normocytic
History iron deficiency anemia
Hgb 9.0 today. Check iron stores.
#Chronic thrombocytopenia/Splenomegaly
prior baseline 40�70 ([id number])
HTN
�benign
Continue carvedilol 6.25 mg twice daily
DVT prophylaxis
Discussed with GI
Total time spent on today's encounter was 52 minutes which included time spent in counseling the patient/family regarding diagnosis and treatment plan as listed above, goals of care, and symptom management. Case was discussed with nursing staff,
specialists, and care coordinators/case management. All labs and imaging personally reviewed by me. Remainder the time spent in detailed review of previous records, lab data, imaging, and other medical provider documentation.
Full code
Anticipated Discharge: Today
Subjective/Interval History
-
Date of Service: December 21, 2024
Improved abdominal discomfort after paracentesis. Denies any shortness of breath at rest. No chest pain. No fever or chills. No diarrhea. No nausea vomiting. Tolerating diet.
Objective Data
-
Labs:
Laboratory Results
12/21/24 12/21/24
06:07 06:08
WBC 3.9 L
Hgb 9.0 L
Hct 27.7 L
Plt Count 58 L D
PT 17.6 H
INR 1.42
Sodium 133 L
Potassium 4.0 D
Chloride 108 H
Carbon Dioxide 25
BUN 13
Creatinine 0.8
Glucose 112 H
Calcium 8.2 L
Total Bilirubin 3.3 H
AST 36
ALT 15
Alkaline Phosphatase 89
Vital Signs:
Vital Signs
Temp Pulse Resp BP Pulse Ox
98 F 78 15 111/73 98
12/21/24 08:50 12/21/24 09:42 12/21/24 09:42 12/21/24 09:42 12/21/24 09:40
Physical Exam
-
General: No Apparent Distress
Respiratory: Clear to Auscultation and Non Labored Respirations; Negative Wheezes, Crackles or Accessory Resp Muscle Use
Cardiac: Regular Rhythm and S1/S2; Negative Tachycardic
GI: Soft, Nontender, Normal Bowel Sounds and Distended (mild)
Musculoskeletal: No Edema
Neuro: AO x 3 and No Motor Deficits; Negative Tremors
Psych: Calm; Negative Confused or Agitated
Data Reviewed
-
Labs: Labs Reviewed by me
[2024-12-21] MEDS: MAGNESIUM SULFATE 50 IV (13:14)
--- NOTE | 2024-12-21 15:44 | W.DCSUMMARY ---
Discharge Summary
Discharge Data
Date of Admission: 12/20/24
Date of Discharge: 12/21/24
-
Pending Results: Yes (Ascitic fluid cytology and final blood cultures)
Hospital Course
Primary diagnosis:
New ascites secondary to portal hypertension
Secondary diagnosis:
Known cirrhosis probably seconsary to alcholism
Alcohol use disorder
Pancytopenia
Hospital course:
74-year-old gentleman with known prior history of alcohol cirrhosis presented with increasing abdominal discomfort and distention and shortness of breath. He had new ascites. He had paracentesis and had 4150 cc drained. Fluid test did not show
any evidence of SBP. SAAG gradient was 1.[address] of the abdomen pelvis showed moderate ascites, no focal collection or abscess, no adenopathy. Unfortunately patient is still using daily alcohol and advised wrongly
to quit it. Alcohol rehab programmer developer was offered to the patient but he wanted to do it himself. He has done it in the past apparently. He was started on Lasix and spironolactone. Repeat BMP was recommended in 2 weeks time. He will follow
with GI as an outpatient. Fluid cytology was pending at the time of discharge.
He has pancytopenia with a white count of 3.9 and hemoglobin of 9 and platelets of 58K which is known to him in the past. Suspect secondary to cirrhosis.His Cr 0.8. Bili was 3.3 with GGT of 113. AST ALT alkaline phosphatase normal at this current
time. Patient was seen by GI during the stay here.
Consultants on board:
[facility]
Discharge Plan
-
Patient Disposition: Home (Routine Discharge)
Discharge Diagnosis/Procedures: New ascites -no SBP;sec to portal hypertension. History of alcoholic cirrhosis
Diet: 2 Gram Sodium
Activity: As tolerated
Driving Restrictions: As prior to admission
Blood Work: BMP in 2 week -arrange through your PCP
Specialty Instructions: Weigh Daily- Call MD for wt gain/loss 3 lbs overnight/5 lbs in 1 week
Referrals:
Christian Michelle MD [Family Provider, Family Practice] - in less than 1 week
Rahul Toribio MD [Active, Gastroenterology] - 01/18/25 11:30 am
Prescriptions:
New
spironolactone 25 mg Tablet
25 mg PO DAILY Qty: 30 0RF
folic acid 1 mg Tablet
1 mg PO DAILY Qty: 30 0RF
furosemide 20 mg Tablet
20 mg PO DAILY Qty: 30 0RF
thiamine mononitrate (vit B1) 100 mg Tablet
100 mg PO BID Qty: 60 0RF
Continued
carvedilol 6.25 mg Tablet
6.25 mg PO BID Qty: 60 0RF
omeprazole 40 MG capsule,delayed release(DR/EC)
40 mg PO DAILY Qty: 30 0RF
M.V.I.
1 tab PO DAILY
iron
65 mg PO DAILY
Discharge Orders:
Discharge Patient (As Directed); Ordered 12/21/24
Ordered By: Jarocho Shaikh
Discharge Date and Time
Print Language: MAORI
== END 2024-12-21 18:20 | disposition home or self-care (01) | DRG 433 ==
LOC: 4 WEST ACU 23:39
PROVIDERS: Clinical Nurse Specialist Family Health; Radiology Vascular & Interventional Radiology; ADMITTING PHYSICIAN Internal Medicine; ATTENDING PHYSICIAN Internal Medicine; CONSULT PHYSICIAN Specialist; EMERGENCY PHYSICIAN Student in an Organized Health Care Education/Training Program; FAMILY PHYSICIAN Family Medicine
PROC: 0W9G3ZZ Drainage of Peritoneal Cavity, Percutaneous Approach (ICD-10-PCS; 2024-12-21)
DX: K70.31 Alcoholic cirrhosis of liver with ascites (principal); D61.818 Other pancytopenia; I85.10 Secondary esophageal varices without bleeding; E87.1 Hypo-osmolality and hyponatremia; K76.6 Portal hypertension; F17.210 Nicotine dependence, cigarettes, uncomplicated; E87.6 Hypokalemia; I50.9 Heart failure, unspecified; R16.1 Splenomegaly, not elsewhere classified; I11.0 Hypertensive heart disease with heart failure; F10.10 Alcohol abuse, uncomplicated; D50.9 Iron deficiency anemia, unspecified; Z79.899 Other long term (current) drug therapy
CPT/HCPCS: 49083; 71046; 74177; 76705; 80053; 80061; 80306; 81003; 81015; 82010; 82042; 82077; 82140; 82150; 82977; 83036; 83615; 83690; 83735; 83880; 84157; 84484; 85025; 85610; 87015; 87070; 87205; 88112; 88305; 89051; 93005; 93306; 97162; 99285; 99406; Q9967

== ENCOUNTER 2025-02-22 13:24 | Emergency (ER) | payer MEDICARE, OTHER, SELFPAY ==
[2025-02-22] VITALS (9 sets, daily range): BP systolic 17–161; BP diastolic 67–140; BMI 29.7
[2025-02-22 13:51] LABS: Hematocrit 29.8 % (39.0-52.0); Hemoglobin 9.4 g/dL (13.0-18.0); Mean Corp Hgb Conc. 31.5 g/dL (33.0-37.0); Mean Corpuscular Volume 80.8 fL (80.0-94.0); Nucleated Red Blood Cells % 0 % (-); Red Cell Dist. Width 18.0 % (11.5-14.5)
[2025-02-22 13:59] LABS: ALT (SGPT) 16 U/L (0-50); AST (SGOT) 37 U/L (17-59); Albumin 3.2 g/dl (3.5-5.0); Alkaline Phosphatase 83 U/L (38-126); Blood Urea Nitrogen 14 mg/dl (9-20); Calcium 8.5 mg/dl (8.4-10.2); Carbon Dioxide 19 mmol/L (22-30); Chloride 110 mmol/L (98-107); Glucose 121 mg/dl (70-99); Lipase 85 U/L (23-300); Potassium 4.4 mmol/L (3.5-5.1); Sodium 135 mmol/L (135-145); Total Protein 7.1 g/dl (6.3-8.2); eGFR > 60.00
[2025-02-22 14:20] LABS: Platelet Count 84 10^3/uL (130-400)
--- NOTE | 2025-02-22 15:59 | ED.GENMED ---
History of Present Illness
<Frank Sawyer DO, Resident - Last Filed: 02/23/25 00:45>
General
Chief Complaint: Abdominal Symptoms
Source: patient
Exam Limitations: none
Time Seen by Provider: 02/22/25 15:32
Nursing documentation reviewed up to this point in time: agreed with
History of Present Illness
History of Present Illness:
Valentino Stoddard is a 74M with PMHx alcoholic cirrhosis and EtOH disorder who is presenting with 2 weeks of increasing abdominal distension in the setting of medication non-compliance and alcohol use. Patient states that he stopped taking his
medications two days and had been using alcohol up until 1 week ago. 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 Patient was discharged home. He states that he supposed to be on Lasix 20 mg daily, spironolactone 25 mg daily, however, that he has been somewhat medically noncompliant. He endorses associated signs of
abdominal pain and leaking of fluid from the umbilicus as well as nausea. Patient endorses 1 episode of vomiting 2 days ago. He denies fevers at home. States that he is occasionally short of breath secondary to abdominal distention. Also
endorses that his mouth is dry. Otherwise, no jaundice, icterus, urinary changes, lower extremity edema.
Past History
<Frank Sawyer DO, Resident - Last Filed: 02/23/25 00:45>
Past History
ED Past Medical History: HTN, Hypercholesterolemia and Other
ED Past Surgical History: None
Patient has exhibited threatening behavior?: No
PSI?: No
Review of Systems
<Frank Sawyer DO, Resident - Last Filed: 02/23/25 00:45>
Review of Systems
Allergies reviewed?: Yes
All Other Systems: ROS reviewed and negative except as documented in HPI and ROS
Phy Exam
<Frank Sawyer DO, Resident - Last Filed: 02/23/25 00:45>
Physical Exam
Physical Exam:
General: pleasantly conversant male in no acute distress, nontoxic appearing
HEENT: Normocephalic, atraumatic, sclera anicteric
Cardio: Regular rate and rhythm, no murmurs, rubs, gallops. HR on monitor occasionally up to 103�104.
Respiratory: No wheezing, rales, rhonchi. Mildly decreased breath sounds in the bilateral bases.
Abdomen: Moderately distended. Otherwise soft, not rigid, no guarding, rebound. Nontender to palpation in all 4 quadrants. Positive fluid wave.
MSK: No clubbing, cyanosis, edema. Mild healing excoriations to the bilateral shins.
Neuro: Awake, alert, oriented. Nontremulous.
Psych: Calm, normal affect.
Course
<Frank Sawyer DO, Resident - Last Filed: 02/23/25 00:45>
Orders/Labs/Results
Orders:
Orders
02/22/25 13:35
Complete Blood Count/With Diff Urgent
Comprehensive Metabolic Panel Urgent
Lipase Urgent
02/22/25 15:54
Consult Interventional Radiology [IRAD CONSULT] Routine
Consulting Provider: Lewis Chou
Was physician already notified: Yes
Procedure being ordered, including laterality if applicable: Paracentesis
Acknowledgement that appropriate orders are entered: Yes
02/22/25 17:03
Body Fluid Albumin Urgent
Fluid Source: Peritoneal (Ascites)
Date Specimen was Collected: 02/22/25
Time Specimen was Collected: 17:02
Body Fluid LDH Urgent
Fluid Source: Peritoneal (Ascites)
Date Specimen was Collected: 02/22/25
Time Specimen was Collected: 17:02
Fluid Culture with Gram Stain Urgent
DEMETRIO Source: Peritoneal Fluid
Specimen Description:
Date Specimen was Collected: 02/22/25
Time Specimen was Collected: 17:02
02/22/25 17:05
Body Fluid Cell Count Routine
What is the Body Fluid: Ascitic Fluid
Date Specimen was Collected: 02/22/25
Time Specimen was Collected: 17:02
02/22/25 18:01
Albumin Human 25% 100 ml [Flexbumin] 25 grams in 100 ml IV TODAY
Albumin Human 25% 50 ml [Flexbumin] 12.5 grams in 50 ml IV TODAY
02/22/25 18:30
Albumin Human 25% 100 ml [Flexbumin] 25 grams in 100 ml IV TODAY
Albumin Human 25% 50 ml [Flexbumin] 12.5 grams in 50 ml IV TODAY
02/22/25 20:11
Albumin Human 25% 50 ml [Flexbumin] 12.5 grams in 50 ml IV TODAY
Abnormal Lab Results
02/22/25
13:35
RBC 3.69 L 10^6/uL
(4.70-6.10)
Hgb 9.4 L g/dL
(13.0-18.0)
Hct 29.8 L %
(39.0-52.0)
MCH 25.5 L pg
(27.0-31.0)
MCHC 31.5 L g/dL
(33.0-37.0)
RDW 18.0 H %
(11.5-14.5)
Plt Count 84 L 10^3/uL
(130-400)
MPV 11.0 H fL
(7.4-10.4)
Absolute Lymphs (auto) 1.0 L 10^3/uL
(1.2-3.4)
Lymphocytes % 20.0 L %
(20.5-51.1)
Monocytes % 11.3 H %
(1.7-9.3)
Chloride 110 H mmol/L
(98-107)
Carbon Dioxide 19 L mmol/L
(22-30)
Glucose 121 H mg/dl
(70-99)
Total Bilirubin 3.2 H mg/dl
(0.2-1.3)
Albumin 3.2 L g/dl
(3.5-5.0)
02/22/25 13:35
02/22/25 13:35
Vital Signs
Initial and Last Documented VS:
Initial Vital Signs
Temp Pulse Resp BP Pulse Ox
97.9 F 103 22 121/84 99
02/22/25 13:27 02/22/25 13:27 02/22/25 13:27 02/22/25 13:27 02/22/25 13:27
Last Documented Vital Signs
Temp Pulse Resp BP Pulse Ox
98 F 90 22 127/77 100
02/22/25 16:10 02/22/25 20:00 02/22/25 20:00 02/22/25 20:00 02/22/25 20:00
<Brennan Valenzuela DO - Last Filed: 02/22/25 18:04>
Orders/Labs/Results
Orders:
Orders
02/22/25 13:35
Complete Blood Count/With Diff Urgent
Comprehensive Metabolic Panel Urgent
Lipase Urgent
02/22/25 15:54
Consult Interventional Radiology [IRAD CONSULT] Routine
Consulting Provider: Lewis Chou
Was physician already notified: Yes
Procedure being ordered, including laterality if applicable: Paracentesis
Acknowledgement that appropriate orders are entered: Yes
02/22/25 17:03
Body Fluid Albumin Urgent
Fluid Source: Peritoneal (Ascites)
Date Specimen was Collected: 02/22/25
Time Specimen was Collected: 17:02
Body Fluid LDH Urgent
Fluid Source: Peritoneal (Ascites)
Date Specimen was Collected: 02/22/25
Time Specimen was Collected: 17:02
Fluid Culture with Gram Stain Urgent
DEMETRIO Source: Peritoneal Fluid
Specimen Description:
Date Specimen was Collected: 02/22/25
Time Specimen was Collected: 17:02
02/22/25 17:05
Body Fluid Cell Count Routine
What is the Body Fluid: Ascitic Fluid
Date Specimen was Collected: 02/22/25
Time Specimen was Collected: 17:02
02/22/25 18:01
Albumin Human 25% 100 ml [Flexbumin] 25 grams in 100 ml IV TODAY
Albumin Human 25% 50 ml [Flexbumin] 12.5 grams in 50 ml IV TODAY
02/22/25 18:30
Albumin Human 25% 100 ml [Flexbumin] 25 grams in 100 ml IV TODAY
Albumin Human 25% 50 ml [Flexbumin] 12.5 grams in 50 ml IV TODAY
02/22/25 20:11
Albumin Human 25% 50 ml [Flexbumin] 12.5 grams in 50 ml IV TODAY
Abnormal Lab Results
02/22/25
13:35
RBC 3.69 L 10^6/uL
(4.70-6.10)
Hgb 9.4 L g/dL
(13.0-18.0)
Hct 29.8 L %
(39.0-52.0)
MCH 25.5 L pg
(27.0-31.0)
MCHC 31.5 L g/dL
(33.0-37.0)
RDW 18.0 H %
(11.5-14.5)
Plt Count 84 L 10^3/uL
(130-400)
MPV 11.0 H fL
(7.4-10.4)
Absolute Lymphs (auto) 1.0 L 10^3/uL
(1.2-3.4)
Lymphocytes % 20.0 L %
(20.5-51.1)
Monocytes % 11.3 H %
(1.7-9.3)
Chloride 110 H mmol/L
(98-107)
Carbon Dioxide 19 L mmol/L
(22-30)
Glucose 121 H mg/dl
(70-99)
Total Bilirubin 3.2 H mg/dl
(0.2-1.3)
Albumin 3.2 L g/dl
(3.5-5.0)
02/22/25 13:35
02/22/25 13:35
Vital Signs
Initial and Last Documented VS:
Initial Vital Signs
Temp Pulse Resp BP Pulse Ox
97.9 F 103 22 121/84 99
02/22/25 13:27 02/22/25 13:27 02/22/25 13:27 02/22/25 13:27 02/22/25 13:27
Last Documented Vital Signs
Temp Pulse Resp BP Pulse Ox
98 F 90 22 127/77 100
02/22/25 16:10 02/22/25 20:00 02/22/25 20:00 02/22/25 20:00 02/22/25 20:00
<Frank Sawyer DO, Resident - Last Filed: 02/23/25 00:45>
MDM/Problems Addressed
Differential Diagnosis Includes:
Ascites, alcoholic cirrhosis, SBP, hypoalbuminemia
MDM/Problems Addressed:
Patient with known alcoholic cirrhosis presenting with worsening abdominal distension. Some SOB with distension, but no abdominal pain or fevers. Physical exam with a nontender abdomen and no peritoneal signs. Afebrile without white count. IRAD
consulted for paracentesis. This drained 6L ascitic fluid. Repleted with 37.5g albumin. Patient feels a marked improvement after paracentesis. Will discharge home with GI follow up. Return precautions given and alcohol abstinence stressed.
<Frank Sawyer DO, Resident - Last Filed: 02/23/25 00:45>
*Pulse Oximetry
SaO2: 100
Oxygen Mode of Delivery: Room air
Patient hypoxic: no
*Critical Care Note
Total Time (30-74mins, 75-104mins- exclusive of procedures): Not Applicable
ED Attending Note
<Frank Sawyer DO, Resident - Last Filed: 02/23/25 00:45>
-
Portions of this chart may have been created with voice recognition software.� Occasional wrong word or��sound alike� substitutions may have occurred due to the inherent limitations of voice recognition software.
<Brennan Valenzuela DO - Last Filed: 02/22/25 18:04>
ED Attending Note
Patient seen and examined by attending physician: Yes
I performed a history and physical exam of patient and discussed management with resident, I reviewed resident's note and agree with documented findings and plan of care.: Yes
ED Attending Note:
I agree with Dr. Sawyer's note. 74-year-old male feeling comfortable, short of breath from fluid accumulation in his abdomen. No fever or chills. He does not really have significant abdominal pain per se just the sense that his abdomen is overly
distended. Preventing him from taking a deep breath or moving around normally. He is having some leakage from his umbilicus.
General: Patient awake, alert no distress
Abdomen: Patient seen status post paracentesis. His abdomen is now soft, nondistended.
Patient feeling tremendously improved after paracentesis. Will administer albumin. Given he is feeling much better he is stable for discharge home follow-up with GI as an outpatient.
Discharge Plan
Departure
Patient Disposition: Home (Routine Discharge)
Date of Disposition: 02/22/25
Time of Disposition: 20:34
Patient with high blood pressure during this ER visit?: No
Condition: Good
Discharge Problem:
Abdominal ascites
Prescriptions:
No Action
carvedilol 6.25 mg Tablet
6.25 mg PO BID Qty: 60 0RF
omeprazole 40 MG capsule,delayed release(DR/EC)
40 mg PO DAILY Qty: 30 0RF
M.V.I.
1 tab PO DAILY
iron
65 mg PO DAILY
spironolactone 25 mg Tablet
25 mg PO DAILY Qty: 30 0RF
folic acid 1 mg Tablet
1 mg PO DAILY Qty: 30 0RF
furosemide 20 mg Tablet
20 mg PO DAILY Qty: 30 0RF
thiamine mononitrate (vit B1) 100 mg Tablet
100 mg PO BID Qty: 60 0RF
Referrals:
UNKNOWN - PT DOES,NOT KNOW [Unknown Provider]
Activity Restrictions/Additional Instructions:
Your abdominal ascites was drained of 6 Liters of fluid. You were repleted with albumin.
You should follow up with the housing officer for further evaluation and recommendations.
As discussed in depth, you should continue to abstain from alcohol completely.
You should take your medications as directed daily. It is important not to miss doses unless directed by a healthcare provider.
Return to the emergency room or call your PCP if you have severe abdominal pain, fevers, your skin turns yellow, or if you have a feeling as if you are about to pass out.
Interventions
Interventions:
*General Assessment Last Done: 02/22/25 13:27
*Neglect/Abuse Screening Last Done: 02/22/25 13:27
*ED COVID-19 Vaccine History Last Done: 02/22/25 15:32
*ED Influenza Vaccine History Last Done: 02/22/25 15:32
[facility] Risk Assessment Tool Last Done: 02/22/25 15:32
*Risk Screen - Suicide (C-SSRS) Last Done: 02/22/25 15:49
*Nursing Disposition Last Done: 02/22/25 21:09
GL-Omivgq-Cvywnprewu Assessment Last Done: 02/22/25 15:32
Discharge Date and Time
Discharge Date/Time: 02/22/25 21:11
Print Language: SWAZI
[2025-02-22 17:53] LABS: Body Fluid Second Tech BGK
[2025-02-22] MEDS: FLEXBUMIN 100 IV (18:33)
[2025-02-22] MEDS: FLEXBUMIN 50 IV (20:09)
== END 2025-02-22 21:11 | disposition home or self-care (01) ==
LOC: EMR 13:24
PROVIDERS: Emergency Medicine; CONSULT PHYSICIAN Radiology Diagnostic Radiology; EMERGENCY PHYSICIAN Emergency Medicine; FAMILY PHYSICIAN Family Medicine
DX: K70.31 Alcoholic cirrhosis of liver with ascites (principal); R10.9 Unspecified abdominal pain; R06.02 Shortness of breath; R68.2 Dry mouth, unspecified; R19.7 Diarrhea, unspecified; Z91.128 Patient's intentional underdosing of medication regimen for other reason; M19.90 Unspecified osteoarthritis, unspecified site; K21.9 Gastro-esophageal reflux disease without esophagitis; I10 Essential (primary) hypertension; E78.00 Pure hypercholesterolemia, unspecified; F17.210 Nicotine dependence, cigarettes, uncomplicated; Z90.49 Acquired absence of other specified parts of digestive tract; Z88.0 Allergy status to penicillin; Z91.013 Allergy to seafood
CPT/HCPCS: 99284; 96365; 96366; 49083; 80053; 82042; 83615; 83690; 85025; 87015; 87070; 87205; 89051; P9047